=== PATIENT | female | born 1980 | race Caucasian/White ===

== ENCOUNTER 2016-10-18 07:09 | Day surgery (SDC) | payer BC, MEDICAID ==
[2016-10-15 13:51] VITALS: Ht 165.1 cm; Wt 70.4 kg
[2016-10-18] VITALS (14 sets, daily range): BP systolic 121–140; BP diastolic 67–92; PULSE 70–82; RESP 10–21
[~2016-10-18] VITALS: Ht 165.1 cm; Wt 70.4 kg
[~2016-10-18 07:09] MED LIST: ACETAMINOPHEN 1000 MG/100 ML IVPB ONE; CEFAZOLIN 1 GM INJ ONE; metroNIDAZOLE 500 MG/100 ML NS IVPB ONE
[2016-10-18] MEDS ORDERED: BUPIVACAINE 0.25% (MPF) 30 ML INJ ONE (08:34)
[2016-10-18] MEDS ORDERED: MIDAZOLAM 1 MG/ML 2 ML INJ ONE (08:36)
[2016-10-18] MEDS ORDERED: FENTAnyl 50 MCG/ML VIAL ONE ×2 (08:36→09:36)
[2016-10-18] MEDS ORDERED: PROPOFOL 20 ML ONE (08:36)
[2016-10-18] MEDS ORDERED: NORG1TAB34 PO (08:44)
[2016-10-18] MEDS ORDERED: ONDANSETRON 4 MG INJ ONE (09:01)
[2016-10-18] MEDS ORDERED: METOCLOPRAMIDE 10 MG INJ ONE (09:01)
[2016-10-18] MEDS ORDERED: FAMOTIDINE 20 MG INJ ONE (09:01)
[2016-10-18] MEDS ORDERED: KETOROLAC 30 MG INJ ONE (09:19)
[2016-10-18] MEDS ORDERED: METOCLOPRAMIDE 10 MG INJ IV PRN (09:30)
[2016-10-18] MEDS ORDERED: MEPERIDINE 25 MG INJ IV PRN (09:30)
[2016-10-18] MEDS ORDERED: morphine (1 MG/ML) 10ML SYRINGE IV PRN ×3 (09:30)
[2016-10-18] MEDS ORDERED: HYDROmorphONE (0.2 MG/ML) 10ML SYG IV PRN ×3 (09:30)
[2016-10-18] MEDS ORDERED: ONDANSETRON 4 MG INJ IV PRN (09:30)
[2016-10-18] MEDS ORDERED: DIPHENHYDRAMINE 50 MG INJ IV PRN (09:30)
[2016-10-18] MEDS ORDERED: HYDROCODONE/APAP (5/325) TAB PO ONE (10:00)
--- NOTE | 2016-10-18 11:03 | OPR ---
DATE OF OPERATION: 10/18/2016 INDICATION: This is a 36-year-old female with complex internal and external hemorrhoids. She requests surgical excision. Risks, alternatives, benefits, and personnel were discussed with patient. Patient expressed understanding and consents to the operation. PREOPERATIVE DIAGNOSIS: External and grade III internal hemorrhoids. POSTOPERATIVE DIAGNOSIS: External and grade III internal hemorrhoids. OPERATION PERFORMED: 1. External hemorrhoidectomy x2 of left lateral and right posterior columns. 2. Multiple internal hemorrhoidal artery ligations of left laterl and right posterior regions 3. Rigid proctoscopy. 4. Right gluteal mass excision 1 cm size incision and 1 cm size mass. 5. Localized adjacent tissue transfer with the use of skin flaps with 1 square centimeter defect. SURGEON: Charlie Kim MD SPECIMEN: Left lateral and right posterior external hemorrhoids. COMPLICATIONS: None. ANESTHESIA: General. PROCEDURE: The patient was taken to the OR and prepped and draped in the usual sterile fashion. Surgical timeout was performed. IV antibiotics were given. Rigid proctoscopy was performed. No evidence of any masses or lesions. Prep was fair. The left lateral internal hemorrhoidal artery was ligated with 3-0 Vicryl suture. The right posterior internal hemorrhoidal artery was ligated using a [id number] 3-0 Vicryl suture. Attention was then paid to the left lateral external hemorrhoid complex. This was excised using Mcmillan and 15 blade and then excised fully with the handheld LigaSure. Cautery was applied for hemostasis. The right posterior external hemorrhoid was addressed in a similar fashion with a 15 blade and handheld LigaSure to excise external hemorrhoid. Cautery was used to establish hemostasis. Local anesthesia was injected to all surgical sites. Attention was then paid to the right gluteal mass. An elliptical incision was made over the right gluteal mass. This is excised with the 15 blade. The wound was irrigated with Betadine multiple times. Cautery was used for hemostasis. The wound was closed with multiple interrupted 2-0 Vicryl. Local anesthesia was also injected into the right gluteal mass incision. There was good hemostasis in all surgical sites. Dry dressings were applied. Dictated By: CHARLIE PATEL/BAILEY Conf#: [id number] DID#: [id number] [facility]ITAL[facility]eron[facility]
--- NOTE | 2016-10-18 14:10 | OPR ---
Date/Time of Note Date/Time of Note DATE: 10/18/16 TIME: 14:08 Operative Report Procedure Date: October 18, 2016 Preoperative Diagnosis hemorrhoids and left gluteal mass Postoperative Diagnosis hemorrhoids and left gluteal mass Operation Performed 1. external hemorrhoidectomy 2 columns 2. internal hemorrhoidal artery ligation 2 colums 3. rigid proctoscopy Surgeon: Gato VOGT Complications: None Gato VOGT October 18, 2016 14:09
== END 2016-10-18 13:09 | disposition home or self-care (01) ==
LOC: SDS 07:09
PROVIDERS: ATTEND Surgery
DX: K64.2 Third degree hemorrhoids (principal)
CPT/HCPCS: 46946; 88304; J0131; J0690; J1170; J1885; J2250; J2765; J3010; Z7512; Z7610; J2405